=== PATIENT | female | born 1965 | race Caucasian/White ===

== ENCOUNTER 2020-08-03 12:18 | Outpatient (REF) | payer OTHER, SELFPAY | END 2020-08-03 12:19 | disposition home or self-care (01) | LOC: HO.WFDLDS 12:18 | PROVIDERS: Visit Provider Internal Medicine Endocrinology, Diabetes & Metabolism | DX: E03.9 Hypothyroidism, unspecified (principal) | CPT/HCPCS: 84443 ==

== ENCOUNTER 2021-08-13 12:36 | Outpatient (REF) | payer OTHER, SELFPAY ==
[2021-08-13 14:49] LABS: TSH reflex Free T4 0.61 uIU/mL (0.32-4.0)
== END 2021-08-13 12:37 | disposition home or self-care (01) ==
LOC: HO.WFDLDS 12:36
PROVIDERS: Visit Provider Internal Medicine Endocrinology, Diabetes & Metabolism
DX: E03.9 Hypothyroidism, unspecified (principal)
CPT/HCPCS: 36415; 84443

== ENCOUNTER 2022-08-15 12:06 | Outpatient (REF) | payer OTHER, SELFPAY ==
[2022-08-15 15:01] LABS: TSH reflex Free T4 1.99 uIU/mL (0.32-4.0)
== END 2022-08-15 12:07 | disposition home or self-care (01) ==
LOC: HO.WFDLDS 12:06
PROVIDERS: Visit Provider Internal Medicine Endocrinology, Diabetes & Metabolism
DX: E03.9 Hypothyroidism, unspecified (principal)
CPT/HCPCS: 36415; 84443

== ENCOUNTER 2023-05-07 12:40 | Outpatient (REF) | payer OTHER, SELFPAY ==
[2023-05-07 15:58] LABS: Alanine Aminotransferase 21 U/L (0-31); Albumin Level 3.1 g/dL (3.5-5.0); Alkaline Phosphatase 148 U/L (39-117); Anion Gap 18 (12-20); Aspartate Amino Transferase 25 U/L (5-31); Bilirubin Total 0.9 mg/dL (0.0-1.0); Blood Urea Nitrogen 13 mg/dL (9-16); Calcium 9.3 mg/dL (8.4-10.2); Carbon Dioxide 25 mmol/L (22-29); Chloride 99 mmol/L (96-108); Estimated Glomerular Filt Rate > 60; Glucose Random 156 mg/dL (60-115); Potassium 5.6 mmol/L (3.3-5.1); Sodium 136 mmol/L (135-145); Total Protein 6.3 g/dL (6.5-8.0)
[2023-05-07 16:14] LABS: TSH reflex Free T4 6.86 uIU/mL (0.32-4.0)
[2023-05-07 16:51] LABS: Free T4 (Free Thyroxine) 0.96 ng/dL (0.71-1.85)
== END 2023-05-07 12:41 | disposition home or self-care (01) ==
LOC: HO.WFDLDS 12:40
PROVIDERS: Visit Provider Internal Medicine Endocrinology, Diabetes & Metabolism
DX: E03.9 Hypothyroidism, unspecified (principal)
CPT/HCPCS: 36415; 80053; 84439; 84443

== ENCOUNTER 2023-06-04 12:37 | Outpatient (REF) | payer OTHER, SELFPAY ==
[2023-06-04 14:33] LABS: MANUAL DIFF FLAG NO
[2023-06-04 14:37] LABS: Basophils Percent Auto 0.4 % (0-2); Eosinophils Absolute Auto 0.2 X10*3/uL (0.0-0.4); Eosinophils Percent Auto 1.8 % (0-4); Hematocrit 44.6 % (37.0-47.0); Hemoglobin 14.1 g/dl (12.0-16.0); Imm Gran Abs Auto 0.05 X10*3/uL (0.00-0.03); Imm Gran Pct Auto 0.6 % (0.0-0.4); Lymphocytes Absolute Auto 0.6 X10*3/uL (1.2-4.9); Lymphocytes Percent Auto 7.4 % (20-40); Mean Corpuscular HGB Conc 31.6 g/dl (31.0-35.0); Mean Corpuscular Hemoglobin 28.3 pg (27.0-33.0); Mean Corpuscular Volume 89.4 fL (80.0-98.0); Mean Platelet Volume 9.9 fL (9.4-12.3); Monocytes Absolute Auto 0.5 X10*3/uL (0.1-1.2); Monocytes Percent Auto 5.5 % (2-11); Neutrophils Absolute Auto 6.9 x10*3/uL (2.0-8.3); Neutrophils Percent Auto 84.3 % (45-73); Platelet Count 247 X10*3/uL (160-400); Red Blood Count 4.99 X10*6/uL (4.20-5.50); Red Cell Distribution Width 16.3 % (11.0-16.0); White Blood Count 8.1 X10*3/uL (4.8-10.8)
[2023-06-04 15:08] LABS: Alanine Aminotransferase 17 U/L (0-31); Albumin Level 2.8 g/dL (3.5-5.0); Alkaline Phosphatase 139 U/L (39-117); Anion Gap 12 (12-20); Aspartate Amino Transferase 19 U/L (5-31); Blood Urea Nitrogen 13 mg/dL (9-16); Calcium 9.1 mg/dL (8.4-10.2); Carbon Dioxide 29 mmol/L (22-29); Chloride 99 mmol/L (96-108); Estimated Glomerular Filt Rate > 60; Glucose Random 151 mg/dL (60-115); Potassium 4.2 mmol/L (3.3-5.1); Sodium 136 mmol/L (135-145); Total Protein 6.3 g/dL (6.5-8.0)
[2023-06-09 13:13] LABS: NT-proBNP 9114 pg/mL (<125)
== END 2023-06-04 12:38 | disposition home or self-care (01) ==
LOC: HO.WFDLDS 12:37
PROVIDERS: Visit Provider Family Medicine
DX: Z13.89 Encounter for screening for other disorder (principal)
CPT/HCPCS: 36415; 80053; 83880; 85025

== ENCOUNTER 2023-06-27 11:31 | Outpatient (REF) | payer OTHER, SELFPAY ==
[2023-06-27 14:54] LABS: Anion Gap 15 (12-20); Blood Urea Nitrogen 8 mg/dL (9-16); Calcium 9.2 mg/dL (8.4-10.2); Carbon Dioxide 30 mmol/L (22-29); Chloride 99 mmol/L (96-108); Estimated Glomerular Filt Rate > 60; Glucose Random 94 mg/dL (60-115); Potassium 3.7 mmol/L (3.3-5.1); Sodium 140 mmol/L (135-145)
[2023-06-27 15:18] LABS: Thyroid Stimulating Hormone 17.97 uIU/mL (0.32-4.0)
== END 2023-06-27 11:32 | disposition home or self-care (01) ==
LOC: HO.WFDLDS 11:31
PROVIDERS: Visit Provider Family Medicine
DX: I87.2 Venous insufficiency (chronic) (peripheral) (principal)
CPT/HCPCS: 36415; 80048; 84443

== ENCOUNTER 2023-08-12 12:23 | Outpatient (REF) | payer OTHER, SELFPAY ==
[2023-08-12 15:27] LABS: TSH reflex Free T4 1.06 uIU/mL (0.32-4.0)
== END 2023-08-12 12:24 | disposition home or self-care (01) ==
LOC: HO.WFDLDS 12:23
PROVIDERS: Visit Provider Family Medicine
DX: Z13.89 Encounter for screening for other disorder (principal)
CPT/HCPCS: 36415; 84443

== ENCOUNTER 2023-11-25 14:59 | Outpatient (AMB) | payer OTHER, SELFPAY ==
--- NOTE | 2023-11-25 15:14 | MHC.OFFVIS ---
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 The patient is a 58-year-old woman presenting with worsening cough and dyspnea. The patient states that for the last 6 months she has been noticing significant edema primarily the lower extremities. Noticed that initially around the summertime. She also complained of increasing shortness of breath and cough. The symptoms gotten so progressive that is hard for her to ambulate any amount of distance because of the shortness of breath and significant lower extremity edema. In addition to that she can not lay flat because of the worsening shortness of breath. The symptoms are moderate to severe. She apparently has been evaluated by primary care who is recommended for her to go to the ER but the patient has been reluctant to do so. In part because she takes care of her 20-year-old daughter who has autism and she does not want to leave her alone. The patient also has evidence of hypothyroidism. She has been working closely with her reception interviewer to adjust her levels. Although it has been fluctuating today her biggest concern is that the lower extremity edema is getting worse and now has a big ulceration of her Right foot area. Her daughter has been taking care of the wound. Initially started like a blister and then edges became ulcerated in does not appear to be healing. She had been on diuretics. Although the diuretics were making a dizzy and therefore she has no longer taking them. When she came to the office we did a brief walking oximetry in her heart rate was about 135 beats per minute her pulse ox did decrease down to about 93 94%. However, due to the heart rate and shortness of breath we can not go any further. The patient had very diminished breath sounds bilaterally. And her breaths were very shallow and tachypneic. Therefore we had her get an EKG which demonstrated a sinus tachycardia with a left bundle branch block and some abnormal looking findings. In view of her significant symptoms her abnormal EKG I did recommend the patient go to the ER. even after explained to the patient that she may have a fatal condition she still was reluctant to go. Her is with her and he has been concerned about his in the fact that she has been reluctant to go to the ER. Since the patient did not want to go to the ER I did have her undergo a chest x-ray and also blood work with the understanding the findings were abnormal she should go to the ER. I did call the patient afterwards explained to him that she has bilateral large pleural effusions which is a bit concerned. The patient also has a TSH over 40 concerning for the possibility of the development of myxedema coma. In addition to that her brain atretic peptide is significantly elevated at 1500. I did call the patient and her explained to them that based on these findings she needs to go to ER. However, there still reluctant to do so even with the understanding that she has a fatal condition. They agreed to call the ambulance if her symptoms worsen. In the meantime will going to go ahead and start her on antibiotics for that wound infection potentially that sometimes can drive myxedema. In addition to that will give her some component of steroids in case she developing adrenal insufficiency and start her on a diuretic. Clearly the patient has a very serious condition and is potentially fatal. We will have her office give her a call tomorrow to see if we can get her to come to the hospital to at least get thoracentesis done and potentially if she is going to myxedema she may need additional interventions. [facility] Medical History (Updated 11/25/23 @ 20:33 by Daniel Augustin MD) Anasarca Myxedema Hypothyroid Pleural effusion, bilateral Palpitations Chest pain CHF (congestive heart failure) Review of Systems Const Reports fatigue, Denies fever(s) and Reports malaise Eyes Denies blurry vision Card Reports pedal edema, Reports leg ulcers, Reports leg edema, Reports palpitations, Reports dyspnea, Reports dyspnea on exertion, Reports orthopnea and Reports paroxysmal nocturnal dyspnea Resp Reports cough, Reports dyspnea, Reports dyspnea on exertion and Denies wheezing GI Reports no additional complaints Musc Reports abnormal gait Skin/Breast Reports skin ulcer and Reports sores Neuro Reports abnormal gait Endo Reports fatigue and Reports palpitations Chase/Lymph Denies lymphadenopathy Aller/Immun Denies wheezing Physical Exam Vital Signs: Last Vital Signs Pulse 92 11/25/23 15:17 Pulse Ox 97 11/25/23 15:17 Oxygen Delivery Method Room Air 11/25/23 15:17 BMI result Body Mass Index 28.8 Const General: acute distress mild and respiratory and ill appearing Orientation/consciousness: patient oriented x3 HEENT Head: Yes normocephalic Neck Neck: Yes supple Chest Chest palpation & inspection: normal inspection of the chest Resp Effort & Inspection: respiratory distress and tachypneic Auscultation: diminished lung sounds Cardio Rate: tachycardic Rhythm: regular rhythm Heart sounds: S1 normal heart sound present and S2 normal heart sound present GI Palpation (GI): Soft to palpation Skin Other: General skin exam: mottling Wounds: wounds noted Neuro General: patient oriented x3 Extrem General: Yes edema Results Reviewed Results Reviewed: [place] [address] XRay Report Signed Patient: Manasa Nye MR#: [id number] : 1965 Acct:[id number] Age/Sex: 58 / F ADM Date: 11/25/23 Loc: [facility] Attending Dr: Daniel Augustin MD Ordering Physician: Daniel Augustin MD Date of Service: 11/25/23 Procedure(s): XR chest 2V Accession Number(s): [id number] cc: Daniel Augustin MD~ EXAMINATION: XR CHEST CLINICAL INFORMATION: Heart failure, unspecified COMPARISON: None available. TECHNIQUE: 2 views of the chest were obtained. FINDINGS: Lung volumes are low. There are large bilateral pleural effusions associated most likely with atelectasis less likely pneumonia. The effusions obscure the heart borders limiting determination of size. There is mild central peribronchial cuffing and likely pulmonary vascular redistribution and findings suggestive of interstitial pulmonary edema. No acute osseous abnormality is seen. XR/XR chest 2V IMPRESSION: Large bilateral pleural effusions with associated most likely with atelectasis less likely pneumonia. Findings suggestive of interstitial pulmonary edema. Dictated By: Yahaira Cross MD Signed By: <Electronically signed by Yahaira Cross MD in OV> 11/25/23 1650 DD/ 1640 TD/TT: Volleyball Player: RUN: 11/25/232025 PAGE 1 [facility] [address] [place] [id number] Java Lead Architect: Conrad Carnes M.D. Specimen Inquiry Name: Manasa Nye Age/Sex: 58/F : 1965 Unit#: [id number] Attend Dr: Daniel Augustin MD Re11/25/23 Status: REG REF Location: [facility] Disch: SPEC : [id number] RAJ: 11/25/23 STATUS: COMP REQ : [id number] RECD: 11/25/23-[address]: Daniel Augustin MD COMP: 11/25/23-1737 ENTERED: 11/25/23-[address]: ORDERED: BMP, Free T4, TSH Rflx Test Result Flag Reference Sodium 140 135-145 mmol/L Potassium 4.5 3.3-5.1 mmol/L CL 96 96-108 mmol/L CO2 31 H 22-29 mmol/L Gap 18 12-20 BUN 16 9-16 mg/dL Creat 0.81 0.5-1.4 mg/dL EGFR > 60 NOTE: For -[place] individuals, multiply the result by 1.210. Chronic Kidney Disease: Estimated GFR < 60 mL/min/1.73m2 Severe Kidney Disease: Estimated GFR < 15 mL/min/1.73m2 Glucose, Random 165 H 60-115 mg/dL CA 10.0 # 8.4-10.2 mg/dL Free T4 0.98 0.71-1.85 ng/dL TSH 42.81 H 0.32-4.0 uIU/mL END OF REPORT Assessment & Plan Assessment & Plan (1) Palpitations: Code(s): R00.2 - Palpitations (2) Foot ulcer: Code(s): L97.509 - Non-pressure chronic ulcer of other part of unspecified foot with unspecified severity (3) CHF (congestive heart failure): Code(s): I50.9 - Heart failure, unspecified (4) Pleural effusion, bilateral: Code(s): J90 - Pleural effusion, not elsewhere classified (5) Hypothyroid: Code(s): E03.9 - Hypothyroidism, unspecified Qualifiers: Hypothyroidism type: unspecified Qualified Code(s): E03.9 - Hypothyroidism, unspecified (6) Myxedema: Code(s): E03.9 - Hypothyroidism, unspecified (7) Anasarca: Code(s): R60.1 - Generalized edema Plan The patient is presenting gravely ill. The patient has been reluctant to go to the ER even after explain that she potentially has a condition. Her is very concerned. She does not want to go to the hospital because she wants to be able to take care of her 20-year-old daughter who has significant autism. After getting the abnormal lab results I did call the family again and then encourage them to go to the ER call the ambulance. There still reluctant at this time. Recommendations: Restart Lasix start small dose of prednisone in case there is a component of adrenal insufficiency start antibiotic coverage for her foot ulceration in case this is driving her worsening myxedema state request an echocardiogram specially with the significantly elevated brain natriuretic peptide and significant tachycardia suggesting in the a component of congestive heart failure. This also could be driven by severe hypothyroidism. The patint will benefit from thoracentesis for therapeutic and also diagnostic purposes. Explained to the family that this will be easier done in the hospital where she can have this done quicker otherwise we take a longer time to schedule as an outpatient will get in touch with her reception interviewer to provide the abnormal laboratory data request any urgent wound care evaluation regarding for ulceration follow-up in 2 weeks in the office Orders: Orders Basic Metabolic Panel Today I50.9 - Heart failure, unspecified, R07.9 - Chest pain, unspecified Troponin-I High Sensitivity Today I50.9 - Heart failure, unspecified, R07.9 - Chest pain, unspecified TSH reflex Free T4 Today R00.2 - Palpitations CA echo transthoracic complete Today I27.20 - Pulmonary hypertension, unspecified Complete Blood Count Auto Diff Today I50.9 - Heart failure, unspecified, R07.9 - Chest pain, unspecified B Type Natriuretic Peptide Today I50.9 - Heart failure, unspecified, R07.9 - Chest pain, unspecified Erythrocyte Sedimentation Rate Today I50.9 - Heart failure, unspecified, R07.9 - Chest pain, unspecified Venous Blood Gas Today I50.9 - Heart failure, unspecified, R07.9 - Chest pain, unspecified XR chest 2V Today I50.9 - Heart failure, unspecified, R07.9 - Chest pain, unspecified Referrals Wound Care Referral L97.509 - Non-pressure chronic ulcer of other part of unspecified foot with unspecified severity Medications: New prednisone PO daily; Take 2 tabs daily x 7 days, then 1 tab daily x 7 days 14 days 21 tabs 0RF furosemide (Lasix) 40 mg (2 x 20 mg) PO DAILY 30 days 60 tabs 0RF doxycycline monohydrate 100 mg PO BID 14 days 28 tabs 0RF Coding Level of Care Code New Pt Level 5 (58405) Diagnoses Palpitations R00.2 Foot ulcer L97.509 CHF (congestive heart failure) I50.9 Pleural effusion, bilateral J90 Hypothyroidism, unspecified type E03.9 Hypothyroidism type: unspecified Myxedema E03.9 Anasarca R60.1 Time Spent (min) 70
[2023-11-25 15:17] VITALS: PULSE 92; O2SAT 97; BMI 28.8
== END 2023-11-25 16:04 | disposition home or self-care (01) ==
PROVIDERS: PCP Family Medicine; Visit Provider Hospitalist
DX: J90 Pleural effusion, not elsewhere classified (principal); R00.2 Palpitations; L97.509 Non-pressure chronic ulcer of other part of unspecified foot with unspecified severity; I50.9 Heart failure, unspecified; E03.9 Hypothyroidism, unspecified; R60.1 Generalized edema
CPT/HCPCS: 99205

== ENCOUNTER 2023-11-25 14:59 | Outpatient (REF) | payer OTHER, SELFPAY ==
--- NOTE | ~2023-11-25 | XR_ITS ---
EXAMINATION: XR CHEST CLINICAL INFORMATION: Heart failure, unspecified COMPARISON: None available. TECHNIQUE: 2 views of the chest were obtained. FINDINGS: Lung volumes are low. There are large bilateral pleural effusions associated most likely with atelectasis less likely pneumonia. The effusions obscure the heart borders limiting determination of size. There is mild central peribronchial cuffing and likely pulmonary vascular redistribution and findings suggestive of interstitial pulmonary edema. No acute osseous abnormality is seen. XR/XR chest 2V IMPRESSION: Large bilateral pleural effusions with associated most likely with atelectasis less likely pneumonia. Findings suggestive of interstitial pulmonary edema.
[2023-11-25 16:25] LABS: MANUAL DIFF FLAG NO
[2023-11-25 16:53] LABS: Basophils Percent Auto 0.6 % (0-2); Eosinophils Absolute Auto 0.1 X10*3/uL (0.0-0.4); Eosinophils Percent Auto 1.3 % (0-4); Hematocrit 52.1 % (37.0-47.0); Hemoglobin 16.7 g/dl (12.0-16.0); Imm Gran Abs Auto 0.03 X10*3/uL (0.00-0.03); Imm Gran Pct Auto 0.6 % (0.0-0.4); Lymphocytes Percent Auto 21.1 % (20-40); Mean Corpuscular HGB Conc 32.1 g/dl (31.0-35.0); Mean Corpuscular Volume 93.5 fL (80.0-98.0); Mean Platelet Volume 10.1 fL (9.4-12.3); Monocytes Absolute Auto 0.3 X10*3/uL (0.1-1.2); Monocytes Percent Auto 6.4 % (2-11); Neutrophils Absolute Auto 3.3 x10*3/uL (2.0-8.3); Platelet Count 278 X10*3/uL (160-400); Red Blood Count 5.57 X10*6/uL (4.20-5.50); Red Cell Distribution Width 16.1 % (11.0-16.0); White Blood Count 4.7 X10*3/uL (4.8-10.8)
[2023-11-25 17:06] LABS: VBG Base Excess 6.5 mmol/L; VBG HCO3 32 mmol/L (22-26); VBG pCO2 48 mmHg; VBG pH 7.42 (7.32-7.43); VBG pO2 27 mmHg
[2023-11-25 17:09] LABS: Venous Blood Gas Refer to POC result
[2023-11-25 17:19] LABS: Anion Gap 18 (12-20); Blood Urea Nitrogen 16 mg/dL (9-16); Carbon Dioxide 31 mmol/L (22-29); Chloride 96 mmol/L (96-108); Estimated Glomerular Filt Rate > 60; Glucose Random 165 mg/dL (60-115); Potassium 4.5 mmol/L (3.3-5.1); Sodium 140 mmol/L (135-145)
[2023-11-25 17:20] LABS: B Type Natriuretic Peptide 1554 pg/mL (<100)
[2023-11-25 17:24] LABS: Troponin-I High Sensitivity 13.9 ng/L (<3.5-17.0)
[2023-11-25 17:34] LABS: Erythrocyte Sedimentation Rate 7 MM/HR (0-20)
[2023-11-25 17:38] LABS: TSH reflex Free T4 42.81 uIU/mL (0.32-4.0)
[2023-11-25 19:09] LABS: Free T4 (Free Thyroxine) 0.98 ng/dL (0.71-1.85)
== END 2023-11-25 15:00 | disposition home or self-care (01) ==
LOC: HO.XRAY 14:59
PROVIDERS: Visit Provider Hospitalist
DX: R00.2 Palpitations (principal); L97.509 Non-pressure chronic ulcer of other part of unspecified foot with unspecified severity; I50.9 Heart failure, unspecified; J90 Pleural effusion, not elsewhere classified; E03.9 Hypothyroidism, unspecified; R60.1 Generalized edema
CPT/HCPCS: 36415; 71046; 80048; 82803; 83880; 84439; 84443; 84484; 85025; 85652